=== PATIENT | female | born 1960 | race Caucasian/White ===

== ENCOUNTER 2020-06-01 08:50 | Emergency (ER) | payer SELFPAY ==
--- NOTE | 2020-06-01 09:13 | PHYS DOC ---
General Adult HPI: HPI: History obtained from EMS. Patient is an unknown aged female who presents with a chief complaint of cardiac arrest. Per EMS a bystander called 911 for patient having witnessed fall from horse and subsequent horse falling on the patient. EMS states patient was pulseless on arrival. The estimated downtime at 10 minutes prior to their arrival. They state the patient remained in asystole throughout transportation. She did receive a total of 2 mg of IV epinephrine prior to arrival. They state they temporarily did palpate a faint pulse prior to arrival. No further history can be obtained. Review of Systems: Review of Systems: Review of symptoms unobtainable secondary to patient's cardiac arrest Heart Score: Risk Factors: Risk Factors: DM, Current or recent (<one month) smoker, HTN, HLP, family history of CAD, obesity. Risk Scores: Score 0 - 3: 2.5% MACE over next 6 weeks - Discharge Home Score 4 - 6: 20.3% MACE over next 6 weeks - Admit for Clinical Observation Score 7 - 10: 72.7% MACE over next 6 weeks - Early Invasive Strategies Physical Exam: PE: Physical Exam Trauma: Primary Survey: Airway: I gel in place Breathing: Breath sounds bilaterally Circulation: Asystole. Disability: GCS on arrival was 3. Pupils 6 millimeters and nonreactive bilaterally Exposure: Complete exposure obtained and described in detail below. Secondary Survey: General: Unresponsive HENT: Atraumatic. TMs clear bilaterally, no hemotympanum. No obvious craniofacial trauma. Midface is stable. No apparent dental or tongue/oropharyngeal injury. No septal hematoma. Eyes: Pupils 6 mm and nonreactive bilaterally. Respiratory: No crepitus, ecchymosis, flail segment present. Bilateral breath sounds present on bagging. Cardiovascular: Asystole. Pulseless GI: Nondistended Integument: Abrasion to the abdomen Neurologic: GCS on arrival as noted above. EKG: EKG: [] Radiology/Procedures: Radiology/Procedures: [] Endotracheal Intubation Procedure Note [place] Protocol: 1. Pre-procedure verification: - Correct patient, correct site, correct procedure (correct patient verified against two identifiers: name and date of ) - H&P or H&P update complete and in medical record - Review of: Radiology images, scans, labs, pathology, biopsy reports with appropriate identifiers (if applicable) - Any required blood products, implants, devices, and/or special equipment for the procedure (if applicable) 2. Site Markings - when appropriate: N/A 3. Time Out: Time out performed (Includes validating the following: Correct patient, correct side/site marked and procedure to performed, correct position) Procedure Details: Procedure: Endotracheal intubation Indication: Acute Respiratory Failure secondary to traumatic cardiac arrest Procedure: Using a glide scope 3, the cords were visualized; an 8.0 tube was able to be passed through the cords with direct visualization. Condensation was seen in the tube; bilateral breath-sounds were present, with none auscultated over the abdomen; good color change was present on EtCO2 detector. A CXR is ordered to cofirm placement. The ETT was secured at 21 cm at the lips. Patient was immediately bagged Ryley Gomez DO Course & Med Decision Making: Course & Med Decision Making Pertinent Labs and Imaging studies reviewed. (See chart for details) [] Patient is an unknown Teetee Whelan who presents with chief complaint of traumatic cardiac arrest. Patient was witnessed to fall if worsens and subsequent course following the patient by bystander. EMS states on arrival patient was pulseless. The estimated downtime at 10 minutes. She did receive a total 2 mg of epinephrine prior to arrival. They do note that they thought that they palpated a faint pulse prior to arrival. Upon arrival to the resuscitation bay patient was pulseless and in asystole. CPR was started immediately. I gel was exchanged for 8.0 cuffed endotracheal tube. Bilateral finger thoracostomies were performed. Minimal amount of blood output from the right thoracostomy site. No rushes of air noted bilaterally. Patient did receive 1 mg of epinephrine while in the emergency department. Patient continued to remain in PEA arrest without palpable pulses. Her eyes were 6 mm and fixed bilaterally. After resuscitative efforts were performed the emergency department patient had a total pulseless time of approximately 50 minutes in the setting of trauma. Resuscitative efforts were terminated after approximately 50 minutes. Time of 0903. Thoracotomy not indicated. Blood transfusion deferred given the length of trauma and no obvious signs of hemorrhagic shock. Bedside echo was performed without any obvious cardiac activity prior to resuscitative efforts being terminated. Dragon Disclaimer: Dragon Disclaimer: This electronic medical record was generated, in whole or in part, using a voice recognition dictation system. Departure Departure: Impression: Primary Impression: Traumatic cardiac arrest Disposition: 20 Condition: Referrals: PCP,MIGUEL (PCP) RYLEY GOMEZ DO Jun 01, 2020 09:13
[2020-06-01] MEDS ORDERED: EPINEPHrine SYRINGE 1 MG/10 ML SYRINGE ONE (12:00)
== END 2020-06-01 15:12 ==
LOC: EDBD 08:50 → ER 08:50
DX: S30.811A Abrasion of abdominal wall, initial encounter (principal); I46.8 Cardiac arrest due to other underlying condition; W18.39XA Other fall on same level, initial encounter; Y93.89 Activity, other specified; Y92.89 Other specified places as the place of occurrence of the external cause; Y99.8 Other external cause status
CPT/HCPCS: 31500; 32551; 92950; 99285; J0171